=== PATIENT | female | born 1975 | race Caucasian/White ===

== ENCOUNTER 2023-11-24 16:09 | Emergency (ER) | payer OTHER, SELFPAY ==
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
--- NOTE | ~2023-11-24 | CT_ITS ---
EXAMINATION: CT chst ab pel thor lum w DATE: 11/24/2023 18:50 INDICATION: TECHNIQUE: Computed tomography (CT) of the chest, abdomen, pelvis, thoracic spine and lumber spine wa s performed with 100 mL Omnipaque-350 intravenous contrast. Automated exposure control and iterative reconstruction technique were employed. The dose-length product was 509.98 mGy-cm. COMPARISON: None FINDINGS: CHEST: No thoracic aortic injury. No mediastinal hematoma. No pericardial effusion. No acute lung injury. No pleural effusion or pneumothorax. ABDOMEN/PELVIS: No solid organ injury. Left nephrolithiasis. No evidence of bowel or mesenteric injury. Mild esophagitis/gastritis. No free fluid or free air. No retroperitoneal hematoma. Pelvic contents are atraumatic. MUSCULOSKELETAL (excluding spine): No acute fracture. THORACIC SPINE: No fracture or traumatic malalignment of the thoracic spine. No severe central canal or neural forami nal narrowing. LUMBAR SPINE: No fracture or traumatic malalignment of the lumbar spine. No severe central canal or neural foramina l narrowing. IMPRESSION: No acute traumatic process detected in the chest, abdomen, pelvis, thoracic spine, or lumbar spine. Reviewed, dictated and finalized at location K. IMPRESSION: No acute traumatic process detected in the chest, abdomen, pelvis, thoracic spi ne, or lumbar spine.
[2023-11-24 16:05] VITALS: BP 162/95; PULSE 70; RESP 18; TEMP 36.9; O2SAT 99
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
[2023-11-24] MEDS: ACETAMINOPHEN 500 MG TABLET 1000 MG PO (17:37)
--- NOTE | 2023-11-24 17:40 | PC.NURSE ---
Karen Sanchez PA-C, at bedside evaluating patient. Pt reported nausea, Karen VORB to d/c flexeril and administer zofran.
[2023-11-24] MEDS: ONDANSETRON HCL ODT 4 MG TABLET PO (18:01)
[2023-11-24 18:21] LABS: Basophils Absolute Auto 0.1 K/mm3 (0.0-0.1); Basophils Percent Auto 0.5 % (0.2-1.2); Eosinophils Percent Auto 0.3 % (0-4.4); Hematocrit 43.5 % (37.0-47.0); Hemoglobin 14.4 g/dL (12.0-15.0); Immature Granulocyte Absolute 0.05 K/mm3 (0.00-0.031); Immature Granulocyte Percent A 0.4 % (0-0.5); Lymphocytes Absolute Auto 2.62 K/mm3 (0.9-3.2); Lymphocytes Percent Auto 21.5 % (18.3-44.2); Mean Corpuscular HGB Conc 33.1 g/dl (32-36); Mean Corpuscular Hemoglobin 28.7 pg (26-34); Mean Corpuscular Volume 86.7 fl (80-100); Mean Platelet Volume 9.2 fl (7.4-10.4); Monocytes Absolute Auto 0.8 K/mm3 (0.1-0.6); Monocytes Percent Auto 6.4 % (2.6-8.5); Neutrophils Absolute Auto 8.6 K/mm3 (1.3-6.7); Neutrophils Percent Auto 70.9 % (45.5-73.1); Platelet Count Result 358 k/mm3 (150-375); Red Blood Count 5.02 M/mm3 (4.2-5.4); Red Cell Distribution Width 14.8 % (11.5-14.5); White Blood Count 12.2 K/mm3 (4.5-10.0)
--- NOTE | 2023-11-24 18:25 | PC.NURSE ---
Pt refused bedside preg test said she is not and will sign a paper.
[2023-11-24 18:28] LABS: Alanine Aminotransferase 22 U/L (6-35); Albumin Level 4.5 g/dL (3.5-5.1); Alkaline Phosphatase 78 U/L (38-126); Anion Gap 4 mmol/L (4-12); Aspartate Amino Transferase 27 U/L (14-36); Bilirubin,Total 0.6 mg/dL (0.2-1.3); Blood Urea Nitrogen 15 mg/dL (7-17); Calcium 9.5 mg/dL (8.4-10.2); Carbon Dioxide 28 mmol/L (22-30); Chloride 106 mmol/L (98-107); Estimated CRCL calculation 98 ml/min; Estimated Glomerular Filt Rate > 60; Glucose 118 mg/dL (65-110); Potassium 3.9 mmol/L (3.4-5.0); Sodium 138 mmol/L (137-145)
[2023-11-24 20:05] VITALS: BP 154/76; PULSE 67; RESP 15; TEMP 37; O2SAT 98
== END 2023-11-24 20:06 | disposition home or self-care (01) ==
PROVIDERS: Emergency Provider Physician Assistant; PCP Nurse Practitioner Family
DX: S06.9X9A Unspecified intracranial injury with loss of consciousness of unspecified duration, initial encounter (principal); S16.1XXA Strain of muscle, fascia and tendon at neck level, initial encounter; V44.5XXA Car driver injured in collision with heavy transport vehicle or bus in traffic accident, initial encounter
CPT/HCPCS: 36415; 70450; 71046; 71260; 72125; 72129; 72132; 74177; 80053; 85025; 99284; A9270; Q9967

== ENCOUNTER 2025-02-20 13:32 | Emergency (ER) | payer SELFPAY ==
[2025-02-20] VITALS (11 sets, daily range): BP systolic 172–184; BP diastolic 78–119; PULSE 83–101; RESP 10–25; TEMP 36.4; O2SAT 96–100
--- NOTE | ~2025-02-20 | CT_ITS ---
EXAMINATION: CT abdomen pelvis w con DATE: 02/20/2025 16:11 INDICATION: LLQ and LUQ pain TECHNIQUE: Computed tomography (CT) of the abdomen and pelvis was performed with 100 mL Omnipaque-350 intravenous contrast. Automated exposure control and iterative reconstruction technique were employe d. The dose-length product was 758.07 mGy-cm. COMPARISON: 11/24/2023. FINDINGS: Lower thorax: Unremarkable Liver: Normal. Biliary/Gallbladder: Gallbladder is normal. No bile duct dilation. Pancreas: No mass or duct dilation. Spleen: Normal. Adrenals:No mass. Kidneys: No suspicious mass, obstructing stone, or hydronephrosis. Nonobstructing 4 mm left midpole c alcification. GI tract: Mild distal esophageal and antral wall edema. No small or large bowel dilation. Normal appe ndix. Mesentery/Peritoneum: No ascites, mass, or free air. Retroperitoneum: No mass. Pelvis: Normal urinary bladder. 1.5 cm cystic lesion in the lower uterine segment/cervix may represen t a large nabothian cyst or degenerative fibroid. Normal bilateral ovaries. 1.8 cm simple appearing l eft ovarian cyst. Soft Tissues: Soft tissues and body wall unremarkable. Bones: No acute osseous finding. IMPRESSION: Mild esophagitis and antral gastritis. Otherwise, no acute abdominopelvic process detected. Reviewed, dictated and finalized at location K.
--- OUTSIDE RECORDS SUMMARY | 2025-02-20 13:35 | XMS_ITS | Clinical Summary ---
Author Organization [facility] Address [address] [place] [id number] Care Team Providers Care Wood Gouger Name Role Phone None, Provider Primary Care Provider Unavaila ble Allergies No known active allergies Medications hydrocodone-acet aminophen (NORCO) 5-325 MG tabletIndication s:Acute Pain < 7 Day Supply Take 1 tablet by mouth every 6 (six) hours as needed. 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 Gender Identity Not on file Sexual Orientation Not on file Last Filed Vital Signs Vital Sign Reading Time Taken Comments Blood Pressure 156/110 07/18/2019 6:37 PM PLANT AND MAINTENANCE TECHNICIAN Pulse 99 07/18/2019 6:37 PM PLANT AND MAINTENANCE TECHNICIAN Temperature 37.3 C (99.2 F) 07/18/2019 4:58 PM PLANT AND MAINTENANCE TECHNICIAN Respiratory Rate 18 07/18/2019 6:37 PM PLANT AND MAINTENANCE TECHNICIAN Oxygen Saturation 98% 07/18/2019 6:37 PM PLANT AND MAINTENANCE TECHNICIAN Inhaled Oxygen Concentration - - Weight - - Height - - Body Mass Index - - Plan of Treatment Health Maintenance Due Date Last Done Comments Cervical Cancer Screening Pa p Smear (Age 30 to 64) Every 3 Years 1973 Colorectal Cancer Screening Colonoscopy (10 Years) 1973 Annual Physical 1976 Hepatitis C 1991 DTaP, Tdap and Td Vaccines ( 1 - Tdap) 1992 Hepatitis B Vaccines (1 of 3 - 19+ 3-dose series) 1992 Cervical Cancer Screening Pa esa with HPV Testing (Age 30 to 64) Every 5 Years 2003 Cervical Cancer Screening with HPV 2003 Mammogram Screening 2013 Pneumococcal Vaccine: 50+ Ye ars (1 of 1 - PCV) 2023 Zoster Vaccines (1 of 2) 2023 COVID-19 Vaccine (2023-2 5 season) 2024 Meningococcal B Vaccine Aged Out No l onger eligible based on patient's age to complete this topic Meningococcal Vaccine Aged Out No rafael ilia eligible based on patient's age to complete this topic RSV Immunizations Under 20 Months Aged Out No longer eligible based on patient's age to complete this topic Care Teams Wood Gouger Relationship Specialty Start Date End Date None, Provider, PCP - General 07/18/19
--- OUTSIDE RECORDS SUMMARY | 2025-02-20 13:35 | XMS_ITS | Clinical Summary ---
Author Organization [facility] Address [address] [place] [id number] Care Team Providers Care Ug Designer Name Role Phone Provider, None Primary Care Provider Unavailabl e Allergies No known active allergies Medications No known medications Social History Tobacco Use Types Packs/Day Years Used Date Smoking Tobacco: Never Smokeless Tobacco: Never Comments No Sex and Gender Information Value Date Recorded Sex Assigned at Not on file Legal Sex Female 12:49 PM HERBICIDE SERVICE SALES REPRESENTATIVE Gender Identity Not on file Sexual Orientation Not on file Last Filed Vital Signs Vital Sign Reading Time Taken Comments Blood Pressure 144/80 06/22/2020 5:36 PM HERBICIDE SERVICE SALES REPRESENTATIVE Pulse 115 06/22/2020 5:36 PM HERBICIDE SERVICE SALES REPRESENTATIVE Temperature 37.4 C (99.3 F) 06/22/2020 5:36 PM HERBICIDE SERVICE SALES REPRESENTATIVE Respiratory Rate 20 06/22/2020 5:36 PM HERBICIDE SERVICE SALES REPRESENTATIVE Oxygen Saturation 95% 06/22/2020 5:36 PM HERBICIDE SERVICE SALES REPRESENTATIVE Inhaled Oxygen Concentration - - Weight 79.4 kg (175 lb) 06/22/2020 5:36 PM HERBICIDE SERVICE SALES REPRESENTATIVE Height - - Body Mass Index - - Plan of Treatment Health Maintenance Due Date Last Done Comments Hepatitis C Virus (HCV) Screening 1973 TdaP Immunization 1973 Hepatitis B Immunization (1 of 3 - 19+ 3-dose series) 1992 Pap Smear 1994 Cervical Cancer Screening (CCS) 2003 HPV/Cotest 2003 Cologuard 2018 Colonoscopy 2018 Colorectal Cancer Screening 2018 Immunochemical Fecal Occult Blood 2018 Pneumococcal Immunization (5 0+ years) (1 of 1 - PCV) 2023 Zoster Immunization (1 of 2) 2023 SARS-COV-2 Immunization (1 - 2023-25 season) 2024 Influenza Immunization (#1) 2025 Respiratory Syncytial Virus (RSV) Immunization (Adult) (1 - 1-dose 75+ series) 2048 Human Papillomavirus (HPV) Immunization Aged Out No longer eligible b ased on patient's age to complete this topic Meningococcal Immunization (ACWY) Aged Out No longer eligible based on patient's age to complete this topic Rotavirus Immunization Aged Out No lo nger eligible based on patient's age to complete this topic Care Teams Ug Designer Relationship Specialty Start Date End Date Provider, None [place] PCP - General 06/22/20
--- NOTE | 2025-02-20 15:05 | ECG_ITS ---
Test Date: 2025-02-20 15:14:17 Measurements Intervals [place] Rate: 75 P: 51 DE: 148 QRS: 0 QRSD: 85 T: 32 QT: 408 QTc: 457 Interpretive Statements SINUS RHYTHM No previous ECG available for comparison Electronically Signed On 02-21-2025 10:46:43 CDT by Gil Macias M.D.
--- NOTE | 2025-02-20 15:10 | ED_ITS ---
HPI - Abdominal Pain General Chief Complaint: Abdominal Pain Stated Complaint: N/V ABD PAIN Time Seen by Provider: 02/20/25 14:56 History of Present Illness HPI narrative: Patient is a 49-year-old female who presents to the ER with complaints of ongoing nausea, vomiting, and abdominal pain. She reports she started taking the weight loss medication, Medvi, four months ago, has had decreased p.o. intake. Patient reports she took her last shot on Friday, 4 days ago. She and her reports she has been vomiting bile and blood since . Patient reports she went to [facility] on Friday and they sent her home with ?Bentyl and nausea medicine. She reports her symptoms improved yesterday but this morning patient woke up and started experiencing the same symptoms. Patient denies any marijuana, alcohol, or illicit drug use. She endorses a history of anxiety and depression for which she takes Wellbutrin, hydroxyzine, and Paxil. Patient denies any chest pain, shortness of breath, recent fevers, or rectal bleeding. Pt reports her last bowel movement was approximately 1 week ago. Related Data Allergies Allergy/AdvReac Type Severity Reaction Status Date / Time No Known Allergies Allergy Unverified 11/24/23 16:18 Review of Systems 2 Review of Systems: All systems reviewed & are unremarkable except as noted in HPI and below PMFSH Past Medical History Medical History History of depression Social History Social History Substance use: never Exam 2 Narrative: GENERAL: Ill-appearing, well-nourished, non-toxic, in acute distress due to vomiting and pain. HEAD: Normocephalic, atraumatic. NECK: Supple. No adenopathy, no masses. RESPIRATORY: Airway patent, respirations nonlabored. Clear to auscultation bilaterally, no rales, rhonchi, wheezing. CARDIOVASCULAR: Regular rate and rhythm without murmurs, rubs, or gallops. Peripheral pulses 2+ and equal bilaterally. ABDOMINAL: Soft, LLQ and LUQ tender with palpation, nondistended, no hepatosplenomegaly. Normoactive BS. MUSCULOSKELETAL: Moves all extremities. Strength/ROM intact without gross deformities. SKIN: Warm, dry, normal color. No rashes. NEURO: A&O X3. Speech clear. Cranial nerves II-XII intact. No ataxic movements. Course Vital Signs Vital signs: Vital Signs Temperature 36.4 C L 02/20/25 13:58 Pulse Rate 99 02/20/25 13:58 Respiratory Rate 18 02/20/25 13:58 Blood Pressure 173/119 H 02/20/25 13:58 Pulse Oximetry 100 02/20/25 13:58 Oxygen Delivery Room Air 02/20/25 13:58 Temperature 36.4 C L 02/20/25 13:58 Pulse Rate 83 02/20/25 19:15 Respiratory Rate 14 02/20/25 19:15 Blood Pressure 176/95 H 02/20/25 19:15 Pulse Oximetry 100 02/20/25 19:15 Oxygen Delivery Room Air 02/20/25 13:58 MDM - Abdominal Pain MDM Narrative Medical decision making narrative: Patient is a 49-year-old female who presents to the ER with complaints of ongoing nausea, vomiting, and abdominal pain. She reports she started taking the weight loss medication, Medvi, four months ago, has had decreased p.o. intake. Patient reports she took her last shot on Friday, 4 days ago. She and her reports she has been vomiting bile and blood since . Patient reports she went to [facility] on Friday and they sent her home with ?Bentyl and nausea medicine. She reports her symptoms improved yesterday but this morning patient woke up and started experiencing the same symptoms. Patient denies any marijuana, alcohol, or illicit drug use. She endorses a history of anxiety and depression for which she takes Wellbutrin, hydroxyzine, and Paxil. Patient denies any chest pain, shortness of breath, recent fevers, or rectal bleeding. Pt reports her last bowel movement was approximately 1 week ago. Labs Ordered: CMP, CBC, lactic acid, ethanol, troponin, PTT, INR, CRP, lipase, UDS, UA Imaging Ordered: CT abdomen pelvis Medications Ordered: 3 L normal saline IV bolus, Zofran 4 mg, morphine 4 mg, Pepcid 20 mg, ceftriaxone 1 g, Reglan 10 mg IV, Benadryl 25 mg IV, potassium chloride p.o. Results: Patient's CBC indicates a white blood cell count of 17.3, hemoglobin of 15.5, and platelet count of 425. Her chemistry indicates a sodium of 135 and potassium of 3.3. Patient's lactic acid was 2.5. Patient's CT abdomen pelvis indicates mild esophagitis and antral gastritis. Otherwise, no acute abdominopelvic process detected. Her urinalysis indicates a urinary tract infection. Diagnosis: Urinary tract infection, dehydration, reaction to medication, illicit drug use Patient Education/Shared MDM: Results of lab work and imaging shared with patient. She is requesting hospitalization. Spoke with hospitalistRachel NP, who reports patient does not meet criteria for admission. Hospitalist and the ER HOST AND HOSTESS decided to repeat patient's blood work and if they were stable or improved patient will be discharged home. Patient's lactic acid results went down after 3 L IV fluid. Her CMP results remain stable. She endorses improvement of symptoms following medication administration. Patient strongly advised to maintain hydration status upon discharge and follow- up with her PCP as soon as possible. She will be discharged home with a prescription for lidocaine patches, Protonix PO, Carafate, Miralax, and Phenergan suppositories. Strict return precautions provided. Patient verbalized understanding and is in agreement with plan. Vital signs stable at time of discharge. All questions answered. Differential Diagnosis Differential diagnosis: Likely abdominal pain, gastroenteritis and small bowel obstruction Lab Data Attestation: I reviewed the patient's lab results. 02/20/25 15:42 02/20/25 18:17 Labs: Lab Results 02/20/25 02/20/25 02/20/25 Range/Units 15:18 15:24 15:42 WBC 17.3 H (4.5-10.0) K/mm3 RBC 5.50 H (4.2-5.4) M/mm3 Hgb 15.5 H (12.0-15.0) g/dL Hct 46.3 (37.0-47.0) % MCV 84.2 (80-100) fl MCH 28.2 (26-34) pg MCHC 33.5 (32-36) g/dl RDW 14.2 (11.5-14.5) % Plt Count 425 H (150-375) k/mm3 MPV 9.2 (7.4-10.4) fl Immature Gran % (Auto) 0.8 H (0-0.5) % Neut % (Auto) 88.5 H (45.5-73.1) % Lymph % (Auto) 6.5 L (18.3-44.2) % Lea % (Auto) 3.9 (2.6-8.5) % Eos % (Auto) 0.0 (0-4.4) % Baso % (Auto) 0.3 (0.2-1.2) % Lymph # (Auto) 1.13 (0.9-3.2) K/mm3 Lea # (Auto) 0.7 H (0.1-0.6) K/mm3 Eos # (Auto) 0.0 (0-0.3) K/mm3 Baso # (Auto) 0.1 (0.0-0.1) K/mm3 Abs Immat Gran (auto) 0.14 H (0.00-0.031) K/mm3 Absolute Neuts (auto) 15.3 H (1.3-6.7) K/mm3 Absolute Nucleated RBC 0.000 (0.0-0.012) K/mm3 Nucleated RBC % 0.0 (0.0-0.2) % PT 14.3 (11.1-14.7) Seconds INR 1.1 APTT 22.2 L (22.3-36.8) Seconds Sodium 135 L (137-145) mmol/L Potassium 3.3 L (3.4-5.0) mmol/L Chloride 104 (98-107) mmol/L Carbon Dioxide 18 L (22-30) mmol/L Anion Gap 13 H (4-12) mmol/L BUN 16 (7-17) mg/dL Creatinine 0.72 (0.7-1.0) mg/dL Estim Creat Clear Calc 83 ml/min Estimated GFR > 60 (59 - ) Glucose 158 H (65-110) mg/dL POC Capillary Glucose 179 H (65-105) mg/dl Lactic Acid 2.5 H (0.7-2.0) mmol/L Calcium 9.0 (8.4-10.2) mg/dL Total Bilirubin 1.0 (0.2-1.3) mg/dL AST 58 H (14-36) U/L ALT 95 H (6-35) U/L Alkaline Phosphatase 63 (38-126) U/L Troponin I < 0.012 (0.000-0.034) ng/mL C-Reactive Protein < 0.5 (<1.0) mg/dL Total Protein 7.0 (6.3-8.2) g/dL Albumin 4.4 (3.5-5.1) g/dL Lipase 65 (23-300) U/L Urine Color Dark yellow (Yellow) Urine Appearance Clear (Clear) Urine pH 5.5 (5.0-9.0) Ur Specific [place] 1.032 (1.001-1.035) Urine Protein 1+ H (Negative) mg/dL Urine Glucose (UA) Negative (Negative) mg/dL Urine Ketones 4+ H (Negative) mg/dL Ur Blood (Man) 1+ H (Negative) Urine Nitrate Positive H (Negative) Urine Bilirubin Negative (Negative) Urine Urobilinogen 1.0 (<2.0) mg/dL Leukocyte Esterase Rfl 1+ H (Negative) MIKE/UL Urine RBC 3-5 H (0-2) /hpf Urine WBC 21-50 H (0-3) /hpf Ur Squamous Epith Cells Few (Few) /hpf Urine Bacteria 2+ H /hpf Urine Casts 0-2 Urine Opiates Screen Positive A (Negative) Urine Methadone Screen Negative (Negative) Ur Barbiturates Screen Negative (Negative) Ur Phencyclidine Scrn Negative (Negative) Ur Amphetamine Screen Negative (Negative) U Benzodiazepines Scrn Negative (Negative) Urine Cocaine Screen Positive A (Negative) U Cannabinoids Screen Negative (Negative) Ethyl Alcohol < 10 (<10) mg/dL 02/20/25 02/20/25 Range/Units 16:02 18:17 WBC (4.5-10.0) K/mm3 RBC (4.2-5.4) M/mm3 Hgb (12.0-15.0) g/dL Hct (37.0-47.0) % MCV (80-100) fl MCH (26-34) pg MCHC (32-36) g/dl RDW (11.5-14.5) % Plt Count (150-375) k/mm3 MPV (7.4-10.4) fl Immature Gran % (Auto) (0-0.5) % Neut % (Auto) (45.5-73.1) % Lymph % (Auto) (18.3-44.2) % Lea % (Auto) (2.6-8.5) % Eos % (Auto) (0-4.4) % Baso % (Auto) (0.2-1.2) % Lymph # (Auto) (0.9-3.2) K/mm3 Lea # (Auto) (0.1-0.6) K/mm3 Eos # (Auto) (0-0.3) K/mm3 Baso # (Auto) (0.0-0.1) K/mm3 Abs Immat Gran (auto) (0.00-0.031) K/mm3 Absolute Neuts (auto) (1.3-6.7) K/mm3 Absolute Nucleated RBC (0.0-0.012) K/mm3 Nucleated RBC % (0.0-0.2) % PT (11.1-14.7) Seconds INR APTT (22.3-36.8) Seconds Sodium 136 L (137-145) mmol/L Potassium 3.2 L (3.4-5.0) mmol/L Chloride 104 (98-107) mmol/L Carbon Dioxide 20 L (22-30) mmol/L Anion Gap 12 (4-12) mmol/L BUN 11 D (7-17) mg/dL Creatinine 0.80 0.60 L (0.7-1.0) mg/dL Estim Creat Clear Calc 75 98 ml/min Estimated GFR > 60 > 60 (59 - ) Glucose 100 (65-110) mg/dL POC Capillary Glucose (65-105) mg/dl Lactic Acid 1.3 (0.7-2.0) mmol/L Calcium 7.8 L (8.4-10.2) mg/dL Total Bilirubin 0.8 (0.2-1.3) mg/dL AST 56 H (14-36) U/L ALT 93 H (6-35) U/L Alkaline Phosphatase 56 (38-126) U/L Troponin I (0.000-0.034) ng/mL C-Reactive Protein (<1.0) mg/dL Total Protein 6.9 (6.3-8.2) g/dL Albumin 4.4 (3.5-5.1) g/dL Lipase (23-300) U/L Urine Color (Yellow) Urine Appearance (Clear) Urine pH (5.0-9.0) Ur Specific [place] (1.001-1.035) Urine Protein (Negative) mg/dL Urine Glucose (UA) (Negative) mg/dL Urine Ketones (Negative) mg/dL Ur Blood (Man) (Negative) Urine Nitrate (Negative) Urine Bilirubin (Negative) Urine Urobilinogen (<2.0) mg/dL Leukocyte Esterase Rfl (Negative) MIKE/UL Urine RBC (0-2) /hpf Urine WBC (0-3) /hpf Ur Squamous Epith Cells (Few) /hpf Urine Bacteria /hpf Urine Casts Urine Opiates Screen (Negative) Urine Methadone Screen (Negative) Ur Barbiturates Screen (Negative) Ur Phencyclidine Scrn (Negative) Ur Amphetamine Screen (Negative) U Benzodiazepines Scrn (Negative) Urine Cocaine Screen (Negative) U Cannabinoids Screen (Negative) Ethyl Alcohol (<10) mg/dL Imaging Data Attestation: I personally reviewed and interpreted this imaging study as follows: Radiologist's impression: ITS Impressions Abdomen/Pelvis CT 02/20/25 16:12 IMPRESSION: Mild esophagitis and antral gastritis. Otherwise, no acute abdominopelvic process detected. Discharge Plan Discharge Clinical Impression: Gastroenteritis, Urinary tract infection, Constipation, Esophagitis, Drug- induced nausea and vomiting, Cocaine abuse Patient Disposition: Home Condition: Stable Instructions: Antibiotic Form, Abdominal Pain (ED) Additional Instructions: Please return to the ER with any worsening symptoms. Follow-up with primary care provider as soon as possible. Take all medications as prescribed, including regularly scheduled medications. Please remember to drink lots of water upon time of discharge. It is in your best interest to stop taking medvi and using cocaine. Patient Language: Panamanian Prescriptions: New promethazine 25 mg suppository 25 mg RECTAL Q6H PRN (Reason: nausea and vomiting) Qty: 12 0RF alum-mag hydroxide-simeth [Maalox Advanced] 200-200-20 mg/5 mL suspension 10 ml PO QID PRN (Reason: indigestion) Qty: 3000 0RF Rx Instructions: administer between meals and at bedtime pantoprazole [Protonix] 40 mg tablet,delayed release (DR/EC) 40 mg PO BID Qty: 60 0RF lidocaine 5 % adhesive patch,medicated 1 patch topical DAILY Qty: 30 0RF Rx Instructions: leave on most painful area for up to 12 hrs polyethylene glycol 3350 [Miralax] 17 gram/dose powder 17 g PO DAILY Qty: 238 0RF No Action cyclobenzaprine 10 mg tablet 10 mg PO TID PRN (Reason: muscle spasm) Qty: 14 0RF Follow-up/Referrals: Heidi Cain APRN [Advanced Practice Nurse] - Time of Disposition: 21:02
[2025-02-20] MEDS: ONDANSETRON INJ 4 MG/2 ML VIAL IV PUSH (15:27)
[2025-02-20] MEDS: SODIUM CHLORIDE 0.9% IV 400 ML 999 ML IV CONT (15:27)
[2025-02-20] MEDS: MORPHINE SULFATE (*CRX) 4 MG/ML INJ IV PUSH (15:28)
[2025-02-20] MEDS: FAMOTIDINE 20 MG/2 ML VIAL IV PUSH (15:30)
[2025-02-20] MEDS: SODIUM CHLORIDE 0.9% IV 1,000 ML 999 ML IV CONT ×2 (15:33)
[2025-02-20 15:35] LABS: Add Urine Microscopic? YES; Appearance Urine Clear (Clear); Glucose Urine UA Negative (Negative); Leukocyte Esterase Ur 1+ LEU/UL (Negative); Nitrate Urine Positive (Negative); Non Pathogenic Casts 0-2; Specific Grav Ur 1.032 (1.001-1.035)
--- OUTSIDE RECORDS SUMMARY | 2025-02-20 15:40 | XMS_ITS | Clinical Summary ---
Author Organization [facility] Address [address] [place] [id number] Care Team Providers Care Prom Burn Off Operator Name Role Phone None, Provider Primary Care [...] on file Legal Sex Female 2:01 PM OBIEE REPORT DEVELOPER Gender Identity Not on file Sexual Orientation Not on file Last Filed Vital Signs Vital Sign Reading Time Taken Comments Blood Pressure 156/110 07/18/2019 6:37 PM OBIEE REPORT DEVELOPER Pulse 99 07/18/2019 6:37 PM OBIEE REPORT DEVELOPER Temperature 37.3 C (99.2 F) 07/18/2019 4:58 PM OBIEE REPORT DEVELOPER Respiratory Rate 18 07/18/2019 6:37 PM OBIEE REPORT DEVELOPER Oxygen Saturation 98% 07/18/2019 6:37 PM OBIEE REPORT DEVELOPER Inhaled Oxygen Concentration - - Weight - [...] age to complete this topic Care Teams Prom Burn Off Operator Relationship Specialty Start Date End Date None, Provider, PCP - General 07/18/19
--- OUTSIDE RECORDS SUMMARY | 2025-02-20 15:40 | XMS_ITS | Clinical Summary ---
Author Organization [facility] Address [address] [place] [id number] Care Team Providers Care Site Identification Specialist Name Role Phone Provider, None Primary Care Provider Unavailabl e Allergies No known active allergies Medications No known medications Social History Tobacco Use Types Packs/Day Years Used Date Smoking Tobacco: Never Smokeless Tobacco: Never Comments No Sex and Gender Information Value Date Recorded Sex Assigned at Not on file Legal Sex Female 12:49 PM GUARD RANGE Gender Identity Not on file Sexual Orientation Not on file Last Filed Vital Signs Vital Sign Reading Time Taken Comments Blood Pressure 144/80 06/22/2020 5:36 PM GUARD RANGE Pulse 115 06/22/2020 5:36 PM GUARD RANGE Temperature 37.4 C (99.3 F) 06/22/2020 5:36 PM GUARD RANGE Respiratory Rate 20 06/22/2020 5:36 PM GUARD RANGE Oxygen Saturation 95% 06/22/2020 5:36 PM GUARD RANGE Inhaled Oxygen Concentration - - Weight 79.4 kg (175 lb) 06/22/2020 5:36 PM GUARD RANGE Height - - Body Mass Index - [...] age to complete this topic Care Teams Site Identification Specialist Relationship Specialty Start Date End Date Provider, None [place] PCP - General 06/22/20
[2025-02-20 15:49] LABS: Hematocrit 46.3 % (37.0-47.0); Hemoglobin 15.5 g/dL (12.0-15.0); Immature Granulocyte Percent A 0.8 % (0-0.5); Lymphocytes Absolute Auto 1.13 K/mm3 (0.9-3.2); Mean Corpuscular HGB Conc 33.5 g/dl (32-36); Mean Corpuscular Hemoglobin 28.2 pg (26-34); Mean Corpuscular Volume 84.2 fl (80-100); Nucleated Red Blood Cells Absolute Auto 0.000 K/mm3 (0.0-0.012); Nucleated Red Blood Cells Perc 0.0 % (0.0-0.2); Platelet Count Result 425 k/mm3 (150-375); Red Blood Count 5.50 M/mm3 (4.2-5.4); White Blood Count 17.3 K/mm3 (4.5-10.0)
[2025-02-20 16:02] LABS: INR 1.1; Partial Thromboplastin Time 22.2 Seconds (22.3-36.8); Prothrombin Time 14.3 Seconds (11.1-14.7)
[2025-02-20 16:03] LABS: Alanine Aminotransferase 95 U/L (6-35); Albumin Level 4.4 g/dL (3.5-5.1); Alkaline Phosphatase 63 U/L (38-126); Anion Gap 13 mmol/L (4-12); Aspartate Amino Transferase 58 U/L (14-36); Bilirubin,Total 1.0 mg/dL (0.2-1.3); Blood Urea Nitrogen 16 mg/dL (7-17); Calcium 9.0 mg/dL (8.4-10.2); Carbon Dioxide 18 mmol/L (22-30); Chloride 104 mmol/L (98-107); Estimated CRCL calculation 83 ml/min; Estimated Glomerular Filt Rate > 60; Glucose 158 mg/dL (65-110); Lipase 65 U/L (23-300); Potassium 3.3 mmol/L (3.4-5.0); Sodium 135 mmol/L (137-145); Total Protein 7.0 g/dL (6.3-8.2)
[2025-02-20 16:05] LABS: Estimated CRCL calculation 75 ml/min; Estimated Glomerular Filt Rate > 60
[2025-02-20 16:19] LABS: CRP < 0.5 mg/dL (<1.0)
[2025-02-20 16:20] LABS: Troponin I < 0.012 ng/mL (0.000-0.034)
[2025-02-20 16:59] LABS: Cannabinoid Screen Urine Negative (Negative)
[2025-02-20] MEDS: cefTRIAXone 1 GM in SODIUM CHLORIDE 0.9% IV 50 ML 100 ML IVPB (17:27)
[2025-02-20] MEDS: METOCLOPRAMIDE HCL INJ 10 MG/2 ML VIAL IV PUSH (17:32)
[2025-02-20] MEDS: POTASSIUM CHLORIDE 20 MEQ ER TABLET 40 MEQ PO (17:35)
[2025-02-20] MEDS: BELLADONNA ALK/PHENOB ELIX 10 ML, MAG HYDROX/ALUMINUM HYD/SIMETH 30 ML, LIDOCAINE 2% VI... PO (18:24)
[2025-02-20] MEDS: KETOROLAC 15 MG/ML VIAL (*BKC) IV PUSH (18:25)
--- NOTE | 2025-02-20 19:15 | PC.NURSE ---
Assumed care of patient after receiving bedside report from THEA Bean @ [id number]
[2025-02-20 19:21] LABS: Alanine Aminotransferase 93 U/L (6-35); Albumin Level 4.4 g/dL (3.5-5.1); Alkaline Phosphatase 56 U/L (38-126); Anion Gap 12 mmol/L (4-12); Aspartate Amino Transferase 56 U/L (14-36); Bilirubin,Total 0.8 mg/dL (0.2-1.3); Blood Urea Nitrogen 11 mg/dL (7-17); Calcium 7.8 mg/dL (8.4-10.2); Carbon Dioxide 20 mmol/L (22-30); Chloride 104 mmol/L (98-107); Estimated CRCL calculation 98 ml/min; Estimated Glomerular Filt Rate > 60; Glucose 100 mg/dL (65-110); Potassium 3.2 mmol/L (3.4-5.0); Sodium 136 mmol/L (137-145); Total Protein 6.9 g/dL (6.3-8.2)
--- NOTE | 2025-02-21 17:21 | PC.NURSE ---
Patient called in to state that provider last night did not prescribe her antibiotic for her UTI. Discussed with Dr Ojeda, he reviewed patients chart and states to send in cephalexin 500mg TID for 7 days, NO refills.
== END 2025-02-20 21:27 | disposition home or self-care (01) ==
PROVIDERS: Student in an Organized Health Care Education/Training Program; Emergency Provider Registered Nurse
DX: K52.9 Noninfective gastroenteritis and colitis, unspecified (principal); N39.0 Urinary tract infection, site not specified; K20.90 Esophagitis, unspecified without bleeding; R11.2 Nausea with vomiting, unspecified; T50.995A Adverse effect of other drugs, medicaments and biological substances, initial encounter; F14.10 Cocaine abuse, uncomplicated; K59.00 Constipation, unspecified; F32.A Depression, unspecified; F41.9 Anxiety disorder, unspecified; K29.70 Gastritis, unspecified, without bleeding; R11.10 Vomiting, unspecified; Z79.899 Other long term (current) drug therapy
CPT/HCPCS: 36415; 74177; 80053; 80307; 81001; 82077; 82948; 83605; 83690; 84484; 85025; 85610; 85730; 86140; 87040; 87086; 93005; 96365; 96375; 99284; A9270; J0696; J1200; J1885; J2270; J2405; J2765; J7030; Q9967

== ENCOUNTER 2025-04-23 21:12 | Emergency (ER) | payer SELFPAY ==
[2025-04-23 21:14] VITALS: BP 153/97; PULSE 81; RESP 18; TEMP 36.3; O2SAT 100
[2025-04-23 21:42] LABS: Hematocrit 43.5 % (37.0-47.0); Hemoglobin 14.6 g/dL (12.0-15.0); Immature Granulocyte Percent A 0.5 % (0-0.5); Lymphocytes Absolute Auto 1.42 K/mm3 (0.9-3.2); Mean Corpuscular HGB Conc 33.6 g/dl (32-36); Mean Corpuscular Hemoglobin 28.0 pg (26-34); Mean Corpuscular Volume 83.5 fl (80-100); Nucleated Red Blood Cells Absolute Auto 0.000 K/mm3 (0.0-0.012); Nucleated Red Blood Cells Perc 0.0 % (0.0-0.2); Platelet Count Result 387 k/mm3 (150-375); Red Blood Count 5.21 M/mm3 (4.2-5.4); White Blood Count 8.1 K/mm3 (4.5-10.0)
[2025-04-23 21:48] LABS: Add Urine Microscopic? YES; Appearance Urine Clear (Clear); Glucose Urine UA Negative (Negative); Leukocyte Esterase Ur Trace LEU/UL (Negative); Nitrate Urine Negative (Negative); Non Pathogenic Casts 0-2; Specific Grav Ur 1.021 (1.001-1.035)
[2025-04-23 21:54] LABS: Alanine Aminotransferase 31 U/L (6-35); Albumin Level 4.9 g/dL (3.5-5.1); Alkaline Phosphatase 67 U/L (38-126); Anion Gap 14 mmol/L (4-12); Aspartate Amino Transferase 38 U/L (14-36); Bilirubin,Total 1.1 mg/dL (0.2-1.3); Blood Urea Nitrogen 11 mg/dL (7-17); Calcium 9.5 mg/dL (8.4-10.2); Carbon Dioxide 17 mmol/L (22-30); Chloride 104 mmol/L (98-107); Estimated CRCL calculation 102 ml/min; Estimated Glomerular Filt Rate > 60; Glucose 165 mg/dL (65-110); Lipase 48 U/L (23-300); Potassium 3.7 mmol/L (3.4-5.0); Sodium 135 mmol/L (137-145); Total Protein 8.2 g/dL (6.3-8.2)
[2025-04-24] VITALS (9 sets, daily range): BP systolic 150–161; BP diastolic 91–94; PULSE 80–85; RESP 16–17; O2SAT 94–100
[2025-04-24] MEDS: MORPHINE SULFATE (*CRX) 2 MG/ML INJ IV PUSH (01:36)
[2025-04-24] MEDS: METOCLOPRAMIDE HCL INJ 10 MG/2 ML VIAL IV PUSH (01:36)
[2025-04-24] MEDS: LACTATED RINGERS 1,000 ML 999 ML IV CONT (01:36)
[2025-04-24 01:44] LABS: BEDSIDEPREGUCG Negative (Negative)
--- NOTE | 2025-04-24 05:31 | ED_ITS ---
HPI - Abdominal Pain General Chief Complaint: Abdominal Pain Stated Complaint: ABD pain, n/v, constipation Time Seen by Provider: 04/24/25 00:36 History of Present Illness HPI narrative: Patient with history of possible gastroparesis presents here with lower abdominal discomfort, nausea vomiting. Has had similar symptoms in the past. Related Data Allergies Allergy/AdvReac Type Severity Reaction Status Date / Time No Known Allergies Allergy Verified 04/23/25 21:20 Review of Systems 2 Review of Systems: All systems reviewed & are unremarkable except as noted in HPI and below PMFSH Past Medical History Medical History History of depression Social History Social History Substance use: never Exam 2 Narrative: EXAMINATION OF ORGAN SYSTEMS/BODY AREAS: Constitutional: Vital signs per nursing GENERAL: Appears uncomfortable HEAD: Normal with no signs of head trauma. EYES: EOMI, conjunctiva normal ENT: Hearing grossly intact LUNGS: Nonlabored breathing. HEART: [Regular rate and rhythm] ABD: [Soft], some tenderness to lower abdomen EXT: Normal range of motion SKIN: [No rashes or lesions.] NEURO: [Alert and oriented x 3. No gross focal sensory or strength deficits.] PSYCH: Normal affect Course Vital Signs Vital signs: Vital Signs Temperature 97.3 F L 04/23/25 21:14 Pulse Rate 81 04/23/25 21:14 Respiratory Rate 18 04/23/25 21:14 Blood Pressure 153/97 H 04/23/25 21:14 Pulse Oximetry 100 04/23/25 21:14 Oxygen Delivery Room Air 04/23/25 21:14 Temperature 97.3 F L 04/23/25 21:14 Pulse Rate 80 04/24/25 01:40 Respiratory Rate 16 04/24/25 01:40 Blood Pressure 161/91 H 04/24/25 01:40 Pulse Oximetry 96 04/24/25 03:46 Oxygen Delivery Room Air 04/23/25 21:14 MDM - Abdominal Pain MDM Narrative Medical decision making narrative: Electronic medical record was reviewed. Patient presented to the ED with complaint of [abdominal pain and vomiting]. Vitals [were within acceptable limits]. Physical exam revealed [tenderness to palpation in the lower abdomen]. Based on the patient's history and physical exam, my differential includes but is not limited to [gastritis, gastroenteritis, cholecystitis, pancreatitis, SBO, she has had appendectomy in the past]. [IV access was established by nursing staff. Patient was given small dose of morphine, and dose of Reglan and fluids]. CBC, BMP, lipase, LFTs, bilirubin and alk phos were obtained. Labs were pertinent for no white count. On reevaluation, the patient states that they are feeling much better. With shared decision making with the patient, since she already had a recent CT scan 2 months ago, her pain is completely resolved, will defer CT at this time. There were no witnessed episodes of vomiting in the emergency department. They are not complaining of any new abdominal pain. Repeat examination did not show any significant guarding or rebound. No new tenderness. At this time I do not feel there is any further emergent treatment to be provided. The patient was given strict return precautions, if they are to develop any worsening abdominal pain, vomiting, or blood in the vomit they are to return to the emergency department immediately. Patient verbally acknowledges understanding these directions. [The patient was informed of the above diagnostic test findings.] They will be discharged home [with prescriptions]. They were advised to follow-up with [their PCP] in 2 days; she already has an appointment on Friday and will be talking to her doctor about getting a referral to GI. The patient feels that this is appropriate medical decision making and verbalizes an understanding of the discharge instructions. Lab Data 04/23/25 21:35 04/23/25 21:35 Labs: Lab Results 04/23/25 04/24/25 Range/Units 21:35 01:41 WBC 8.1 (4.5-10.0) K/mm3 RBC 5.21 (4.2-5.4) M/mm3 Hgb 14.6 (12.0-15.0) g/dL Hct 43.5 (37.0-47.0) % MCV 83.5 (80-100) fl MCH 28.0 (26-34) pg MCHC 33.6 (32-36) g/dl RDW 13.4 (11.5-14.5) % Plt Count 387 H (150-375) k/mm3 MPV 9.3 (7.4-10.4) fl Immature Gran % (Auto) 0.5 (0-0.5) % Neut % (Auto) 77.1 H (45.5-73.1) % Lymph % (Auto) 17.5 L (18.3-44.2) % [place] % (Auto) 4.3 (2.6-8.5) % Eos % (Auto) 0.1 (0-4.4) % Baso % (Auto) 0.5 (0.2-1.2) % Lymph # (Auto) 1.42 (0.9-3.2) K/mm3 [place] # (Auto) 0.4 (0.1-0.6) K/mm3 Eos # (Auto) 0.0 (0-0.3) K/mm3 Baso # (Auto) 0.0 (0.0-0.1) K/mm3 Abs Immat Gran (auto) 0.04 H (0.00-0.031) K/mm3 Absolute Neuts (auto) 6.3 (1.3-6.7) K/mm3 Absolute Nucleated RBC 0.000 (0.0-0.012) K/mm3 Nucleated RBC % 0.0 (0.0-0.2) % Sodium 135 L (137-145) mmol/L Potassium 3.7 (3.4-5.0) mmol/L Chloride 104 (98-107) mmol/L Carbon Dioxide 17 L (22-30) mmol/L Anion Gap 14 H (4-12) mmol/L BUN 11 (7-17) mg/dL Creatinine 0.58 L (0.7-1.0) mg/dL Estim Creat Clear Calc 102 ml/min Estimated GFR > 60 (59 - ) Glucose 165 H (65-110) mg/dL Calcium 9.5 (8.4-10.2) mg/dL Total Bilirubin 1.1 (0.2-1.3) mg/dL AST 38 H (14-36) U/L ALT 31 (6-35) U/L Alkaline Phosphatase 67 (38-126) U/L Total Protein 8.2 (6.3-8.2) g/dL Albumin 4.9 (3.5-5.1) g/dL Lipase 48 (23-300) U/L Urine Color Yellow (Yellow) Urine Appearance Clear (Clear) Urine pH >=9.0 H (5.0-9.0) Ur Specific [place] 1.021 (1.001-1.035) Urine Protein 1+ H (Negative) mg/dL Urine Glucose (UA) Negative (Negative) mg/dL Urine Ketones 4+ H (Negative) mg/dL Ur Blood (Man) Negative (Negative) Urine Nitrate Negative (Negative) Urine Bilirubin Negative (Negative) Urine Urobilinogen 1.0 (<2.0) mg/dL Leukocyte Esterase Rfl Trace H (Negative) MIKE/UL Urine RBC 3-5 H (0-2) /hpf Urine WBC 0-5 (0-3) /hpf Ur Squamous Epith Cells None seen (Few) /hpf Urine Bacteria None seen /hpf Urine Casts 0-2 POC Urine HCG, Qual Negative (Negative) Discharge Plan Discharge Clinical Impression: Abdominal pain, Nausea & vomiting Patient Disposition: Home Condition: Stable Instructions: Acute Nausea and Vomiting (ED), Abdominal Pain (ED) Additional Instructions: You can try the medications as prescribed, please follow-up with the GI specialist. You can always return to the ER if your symptoms return or worsen. Patient Language: Swedish Prescriptions: New metoclopramide HCl [Reglan] 10 mg tablet 10 mg PO Q6H PRN (Reason: nausea and vomiting) Qty: 14 0RF No Action cyclobenzaprine 10 mg tablet 10 mg PO TID PRN (Reason: muscle spasm) Qty: 14 0RF promethazine 25 mg suppository 25 mg RECTAL Q6H PRN (Reason: nausea and vomiting) Qty: 12 0RF alum-mag hydroxide-simeth [Maalox Advanced] 200-200-20 mg/5 mL suspension 10 ml PO QID PRN (Reason: indigestion) Qty: 3000 0RF Rx Instructions: administer between meals and at bedtime pantoprazole [Protonix] 40 mg tablet,delayed release (DR/EC) 40 mg PO BID Qty: 60 0RF lidocaine 5 % adhesive patch,medicated 1 patch topical DAILY Qty: 30 0RF Rx Instructions: leave on most painful area for up to 12 hrs polyethylene glycol 3350 [Miralax] 17 gram/dose powder 17 g PO DAILY Qty: 238 0RF cephalexin 500 mg capsule 500 mg PO TID 7 Days Qty: 21 0RF Follow-up/Referrals: PHYSICIAN,CAPTAIN'S ASSISTANT [Primary Care Provider, Internal Medicine]
== END 2025-04-24 05:00 | disposition home or self-care (01) ==
PROVIDERS: Emergency Provider Emergency Medicine
DX: R10.30 Lower abdominal pain, unspecified (principal); R11.2 Nausea with vomiting, unspecified; F32.A Depression, unspecified
CPT/HCPCS: 36415; 80053; 81001; 81025; 83690; 85025; 96361; 96374; 96375; 99284; J2270; J2765; J7120